=== PATIENT | male | born 1970 | race African-American/Black ===

== ENCOUNTER 2016-12-17 20:37 | Emergency (ER) | payer OTHER ==
[~2016-12-17] VITALS: Ht 177.8 cm; Wt 72.6 kg
[~2016-12-17 20:37] MED LIST: BACITRACIN-P28.35 GM TP
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
[2016-12-17] MEDS ORDERED: Lidocaine 2% Visc 15ml soln ORAL ONE (21:45)
[2016-12-17] MEDS ORDERED: NORCO 5-325 TA1 EACH ORAL (23:34)
[2016-12-17] MEDS ORDERED: KEFLEX500 MG ORAL (23:34)
[2016-12-17 23:47] VITALS: BP 122/88
[2016-12-17 23:51] VITALS: BP 122/88
== END 2016-12-17 23:51 | disposition home or self-care (01) ==
LOC: EMR 21:00
DX: S01.511A Laceration without foreign body of lip, initial encounter (principal); R21 Rash and other nonspecific skin eruption; S00.93XA Contusion of unspecified part of head, initial encounter; Y04.2XXA Assault by strike against or bumped into by another person, initial encounter; Y93.9 Activity, unspecified; Y92.9 Unspecified place or not applicable; Z88.2 Allergy status to sulfonamides
CPT/HCPCS: 12011; 99284; Z7502

== ENCOUNTER 2017-05-28 19:08 | Emergency (ER) | payer OTHER ==
[~2017-05-28] VITALS: Ht 177.8 cm; Wt 95.3 kg
[~2017-05-28 19:08] MED LIST changes: +KEFLEX500 MG ORAL; +NORCO 5-325 TA1 EACH ORAL
[2017-05-28 19:20] VITALS: BP 137/91
[2017-05-28] MEDS ORDERED: CLINDAMYCIN HC300 MG ORAL (20:22)
--- NOTE | 2017-05-28 20:22 | Emergency Room Report ---
History of Present Illness General Chief Complaint: Skin Rash/Abscess Source: Patient Present Illness HPI 47 y/o male c/o multiple skin ulcers that have been present for months. States he has an ulcer on his left buttock that drains puss, left leg and left foot that is tender to touch. States he has had multiple rounds of abx in the past and is here requesting treatment. Patient denies any numbness, tingling, pressure, paralysis, cyanosis, bruising, loss of sensation, or loss of range of motion. Allergies: Uncoded Allergies: SULFA (Allergy, Unknown, 06/07/16) Patient History Past Medical History: see triage record Past Surgical History: other Pertinent Family History: none Immunizations: UTD Reviewed Nursing Documentation: PMH: Agreed, PSxH: Agreed Nursing Documentation-PMH Past Medical History: No Stated History Review of Systems All Other Systems: negative except mentioned in HPI Physical Exam Vital Signs Date Time Temp Pulse Resp B/P (MAP) Pulse Ox O2 Delivery O2 Flow Rate FiO2 05/28/17 19:15 98.1 94 16 137/91 98 Room Air Sp02 EP Interpretation: reviewed, normal General Appearance: no apparent distress, alert, GCS 15, non-toxic Head: normocephalic, atraumatic Eyes: bilateral eye normal inspection, bilateral eye PERRL ENT: hearing grossly normal, normal pharynx, no angioedema, normal voice Respiratory: chest non-tender, lungs clear, normal breath sounds, speaking full sentences Cardiovascular #1: regular rate, rhythm, no edema Musculoskeletal: back normal, gait/station normal, normal range of motion, non- tender, calf tenderness Neurologic: alert, oriented x3, responsive, motor strength/tone normal, sensory intact, other - speech incoherant / mumbling Psychiatric: mood/affect normal, no suicidal/homicidal ideation Skin: other - skin ulcer with local erythema on left buttock, left thigh and sole of left foot. No induration or drainage or fluctulent mass. Lymphatic: normal inspection Medical Decision Making PA Attestation Dr. Osman is my supervising physician with whom patient management has been discussed with. Diagnostic Impression: Primary Impression: Cellulitis Qualified Codes: L03.119 - Cellulitis of unspecified part of limb ER Course Pt. presents to the ED c/o skin infection Ddx considered but are not limited to sebaceous cyst, cellulitis, abscess, tumor , hematoma, lymphangitis Vital signs: are WNL, pt. is afebrile H&PE are most consistent with cellulitis ORDERS: none required at this time, the diagnosis is clinical ED INTERVENTIONS: none required at this time. DISCHARGE: At this time pt. is stable for d/c to home. Will provide printed patient care instructions, and any necessary prescriptions. Care plan and follow up instructions have been discussed with the patient prior to discharge. Last Vital Signs Date Time Temp Pulse Resp B/P (MAP) Pulse Ox O2 Delivery O2 Flow Rate FiO2 05/28/17 19:20 98.1 16 137/91 98 Room Air 05/28/17 19:15 94 Status: unchanged Disposition: HOME, SELF-CARE Condition: Stable Scripts Clindamycin Hcl (CLINDAMYCIN HCL) 300 Mg Capsule 300 MG ORAL TID for 10 Days, #30 CAP Prov: GAUTAM LOPEZ 05/28/17 Patient Instructions: Cellulitis, Skin Ulcer Additional Instructions: Take medication as directed. Patient instructed to take ibuprofen and tylenol as needed for pain. Patient to return for wound check in 2-3 days either here, urgent care or with PCP. Advised patient to keep site of infection elevated above the level of their heart 3 or 4 times a day, for 30 minutes each time to help reduce swelling. Patient is to keep the infected area clean and dry. They can take a shower or bath, but be sure to pat the area dry with a towel afterward. Patient instructed to not put any antibiotic ointments or creams on the area. Patient should come back sooner if their symptoms do not get better within 3 days of starting treatment or if the red area gets bigger, more swollen , or more painful. GAUTAM LOPEZ May 28, 2017 20:22
[2017-05-28 20:27] VITALS: BP 137/91
== END 2017-05-28 21:00 | disposition home or self-care (01) ==
LOC: EMR 20:37
DX: L03.116 Cellulitis of left lower limb (principal); R21 Rash and other nonspecific skin eruption; L98.419 Non-pressure chronic ulcer of buttock with unspecified severity; Z88.2 Allergy status to sulfonamides
CPT/HCPCS: 99283

== ENCOUNTER 2017-07-04 15:51 | Emergency (ER) | payer OTHER ==
[~2017-07-04] VITALS: Ht 177.8 cm; Wt 122.5 kg
[~2017-07-04 15:51] MED LIST changes: +CLINDAMYCIN HC300 MG ORAL
[2017-07-04 16:09] VITALS: BP 140/83
[2017-07-04] MEDS ORDERED: Tetanus/Diptheria/Pertussis Vaccine 0.5ml Syr IM ONE (16:45)
--- NOTE | 2017-07-04 17:28 | Emergency Room Report ---
History of Present Illness General Chief Complaint: Laceration Source: Patient Present Illness HPI 47-year-old male presents to the emergency department complaining of 10 out of 10 in severity pain to multiple lacerations on the bilateral palms and left inner thigh times one week. he states he sustained the lacerations when he was running and climbing a fence. Patient does not know when his last tetanus vaccination was. pt. also reports that he fell and his hands came in contact with broken glass. Patient states the most painful laceration is on his left inner thigh where there is surrounding erythema and he states that it is "Oozing." Denies numbness tingling or loss of sensation or gross motor movements of the extremities, incontinence of bowel or bladder. Denies CP, Palpitations, LOC, AMS, dizziness, Changes in Vision, Sensation, paresthesias, or a sudden severe headache. Allergies: Uncoded Allergies: SULFA (Allergy, Unknown, 06/07/16) Patient History Past Medical History: see triage record Past Surgical History: none Pertinent Family History: none Reviewed Nursing Documentation: PMH: Agreed, PSxH: Agreed Nursing Documentation-PMH Past Medical History: No Stated History Review of Systems All Other Systems: negative except mentioned in HPI Physical Exam Vital Signs Date Time Temp Pulse Resp B/P (MAP) Pulse Ox O2 Delivery O2 Flow Rate FiO2 07/04/17 16:04 97.5 80 18 140/83 95 Room Air Sp02 EP Interpretation: reviewed, normal General Appearance: no apparent distress, alert, GCS 15, non-toxic Head: normocephalic, atraumatic Eyes: bilateral eye normal inspection, bilateral eye PERRL ENT: hearing grossly normal, normal voice Neck: full range of motion Respiratory: lungs clear, normal breath sounds, speaking full sentences Cardiovascular #1: regular rate, rhythm Musculoskeletal: back normal, gait/station normal, normal range of motion, tender - ttp superficially to the left inner thigh about wound that appear to have secondary infection. Neurologic: alert, oriented x3, responsive, motor strength/tone normal, sensory intact, speech normal Skin: normal color, warm/dry, well hydrated, laceration - Multiple and almost healed lacerations to the bilateral palms in addition to small 1 cm laceration to the left inner thigh with erythema, scabbing, increased temperature palpation. There is no crepitus. Lymphatic: no adenopathy Medical Decision Making PA Attestation Dr. Bergeron is my supervising Physician whom patient management has been discussed with. Diagnostic Impression: Primary Impression: Multiple lacerations Additional Impression: Cellulitis and abscess of left leg ER Course 47-year-old male presents to the emergency department complaining of 10 out of 10 in severity pain to multiple lacerations on the bilateral palms and left inner thigh times one week. he states he sustained the lacerations when he was running and climbing a fence. Patient does not know when his last tetanus vaccination was. pt. also reports that he fell and his hands came in contact with broken glass. Patient states the most painful laceration is on his left inner thigh where there is surrounding erythema and he states that it is "Oozing." Denies numbness tingling or loss of sensation or gross motor movements of the extremities, incontinence of bowel or bladder. Denies CP, Palpitations, LOC, AMS, dizziness, Changes in Vision, Sensation, paresthesias, or a sudden severe headache. . Ddx considered but are not limited to laceration, tendon injury, cellulitis, amputation, necrotizing fasciitis, retained FB's. Vital signs: are WNL, pt. is afebrile H&PE are most consistent with: Multiple and almost healed lacerations to the bilateral palms in addition to small 1 cm laceration to the left inner thigh with erythema, scabbing, increased temperature palpation. There is no crepitus. Patient has very rapid speech and is very talkative. I suspect drug use. The patient denies this. ORDERS: -X-ray Bilateral Hands : no obvious radio-opaque foreign bodies. ED INTERVENTIONS: -Tetanus vaccine was administered as pt. vaccination status was unknown. -Bacitracin and sterile dressing is applied. d/w pt. conservative treatment, and to follow up with a primary care provider. pt given a list of primary care clinics for follow up. d/w pt. to return to the ED with worsening or new symptoms. -Pt. reports at his last visit here he was given a cane. states he lost his cane and is requesting a new one. d/w pt. will write rx for cane. DISCHARGE: At this time pt. is stable for d/c to home. Will provide printed patient care instructions, and any necessary prescriptions. Care plan and follow up instructions have been discussed with the patient prior to discharge. Other X-Ray Diagnostic Results Other X-Ray Diagnostic Results #1: X-Ray ordered: Right Hand # of Views/Limited Vs Complete: 3 View Indication: Pain EP Interpretation: Yes PA Xray: Interpretation reviewed, by supervising MD, and agrees with findings. Interpretation: no dislocation, no soft tissue swelling, no fractures Impression: No acute disease - no obvious radioopaque foreign bodies noted. Electronically Signed by: Carine Ware PA-C Other X-Ray Diagnostic Results #2: X-Ray ordered: Left Hand # of Views/Limited Vs Complete: 3 View Indication: Pain EP Interpretation: Yes PA Xray: Interpretation reviewed, by supervising MD, and agrees with findings. Interpretation: no dislocation, no soft tissue swelling, no fractures Impression: No acute disease - no obvious radioopaque foreign bodies noted. Electronically Signed by: Carine Ware PA-C Last Vital Signs Date Time Temp Pulse Resp B/P (MAP) Pulse Ox O2 Delivery O2 Flow Rate FiO2 07/04/17 16:09 97.5 78 18 140/83 95 Room Air Disposition: HOME, SELF-CARE Condition: Stable Scripts Cane (CANE) 1 Each Each EACH , #1 Prov: Carine Ware P.A. 07/04/17 Ibuprofen* (MOTRIN*) 400 Mg Tablet 400 MG ORAL THREE TIMES A DAY, #20 TAB 0 Refills Prov: Carine Ware P.A. 07/04/17 Clindamycin Hcl (CLINDAMYCIN HCL) 300 Mg Capsule 300 MG ORAL FOUR TIMES A DAY for 7 Days, #21 CAP Prov: Carine Ware P.A. 07/04/17 Cephalexin* (KEFLEX*) 500 Mg Capsule 500 MG ORAL EVERY 12 HOURS for 7 Days, #14 CAP 0 Refills Prov: Carine Ware P.A. 07/04/17 Bacitracin/Polymyxin B Sulfate (BACITRACIN-POLYMYXIN OINTMENT) 28.35 Gm Oint...g. 1 APPLIC TP BID, #28.3 GM Prov: Carine Ware P.A. 07/04/17 Referrals: [facility],REFERRING (PCP) Patient Instructions: Nonsutured Laceration Care Additional Instructions: Take medications as directed. Follow up with a Primary Care Provider in 3-5 days, even if your symptoms have resolved. --Please review list of primary care clinics, if you do not already have a primary care provider Return sooner to ED if new symptoms occur, or current symptoms become worse. - Please note that this Emergency Department Report was dictated using [employer] of the sight impaired technology software, occasionally this can lead to erroneous entry secondary to interpretation by the dictation equipment. Carine Ware Jul 04, 2017 17:28
[2017-07-04] MEDS ORDERED: Bacitracin Oint UD TOPIC ONE (17:30)
[2017-07-04] MEDS ORDERED: IBUPROFEN400 MG ORAL (17:30)
[2017-07-04] MEDS ORDERED: CANE1 EACH MC (17:30)
[2017-07-04] MEDS ORDERED: CEPHALEXIN500 MG ORAL (17:30)
[2017-07-04] MEDS ORDERED: CLINDAMYCIN HC300 MG ORAL (17:30)
[2017-07-04] MEDS ORDERED: BACITRACIN-P28.35 GM TP (17:30)
[2017-07-04 17:35] VITALS: BP 140/83
--- NOTE | 2017-07-05 17:24 | Diagnostic Imaging Report ---
Indications: Reason For Exam: PAIN Technique: 3 views of the right hand Comparison: 06/07/2016 Findings: No acute fractures. No dislocations. Joint spaces are preserved. No radiopaque foreign body. Normal mineralization. There is an old healed fracture deformity of the first metacarpal.. No significant interim change Impression: No acute process
--- NOTE | 2017-07-06 09:09 | Diagnostic Imaging Report ---
Indication: Pain, nontrauma Technique: 3 views left hand Comparison: none Findings: There is equivocal ulnar deviation of the fifth metacarpophalangeal joint. There is slight flexion deformity of the fourth digit. No acute fractures. No dislocations. Joint spaces are preserved Impression: No acute process
== END 2017-07-04 17:35 | disposition home or self-care (01) ==
LOC: EMR 16:30
DX: L03.116 Cellulitis of left lower limb (principal); S61.412A Laceration without foreign body of left hand, initial encounter; S61.411A Laceration without foreign body of right hand, initial encounter; Z23 Encounter for immunization; Z88.2 Allergy status to sulfonamides; W17.89XA Other fall from one level to another, initial encounter; Y92.9 Unspecified place or not applicable
CPT/HCPCS: 90471; 90715; 99284